=== PATIENT | male | born 1965 | race Caucasian/White ===

== ENCOUNTER 2016-11-22 08:06 | Inpatient (IN) | payer OTHER ==
[2016-11-22] VITALS (13 sets, daily range): BP systolic 113–155; BP diastolic 57–94
[~2016-11-22] VITALS: Ht 195.6 cm; Wt 103.8 kg
--- NOTE | 2016-11-22 09:42 | ED ORDER SUMMARY ---
..... Patient: PRABHJOT CHARLES OrderSheet [facility] VisitID: [id number] [address] [place] [address] 51y, M Registration Date/Time: 11/22/2016 ORDER SHEET Weight: 99.7 kg (stated) Allergies: NKDA GENERAL ORDERS: Cork Insulation Installer (Continuous) (08:11/22/2016 Radha CUNNINGHAM) (Ack 8:27 LMuller) (8:29 JBoardley R.N.) Chest 1V Urgent (:11/22/2016 Radha CUNNINGHAM) (Ack 8:27 LMuller) (8:36 JBoardley R.N.) Cardiac Panel Stat (11/22/2016 Radha CUNNINGHAM) (Ack 8:27 LMuller) (8:29 JBoardley R.N.) TSH Urgent (:11/22/2016 Radha CUNNING[place]AM) (Ack 8:27 LMuller) (8:29 JBoardley R.N.) UA-Culture if indicated Urgent (:11/22/2016 Radha CUNNING[place]AM) (Ack 8:27 LMuller) (8:59 JBoardley R.N.) Urine Drug Screen Urgent (:11/22/2016 Radha CUNNING[place]AM) (Ack 8:27 LMuller) (8:59 JBoardley R.N.) EKG - ER Stat (:11/22/2016 Radha CUNNING[place]AM) (Ack 8:27 LMuller) (8:28 LMuller) Pulse oximeter (:11/22/2016 Radha CUNNING[place]AM) (Ack 8:27 LMuller) (8:29 JBoardley R.N.) Oxygen (2 L/min) (NC) (:11/22/2016 Radha CUNNINGHAM) (Ack 8:27 LMuller) (8:29 JBoardley R.N.) BNP Urgent (09:11 11/22/2016 Radha CUNNING[place]AM) (9:14 LMuller) MEDICATION ORDERS: Aspirin PO 325 mg (NOW) (08:30 11/22/2016 Radha CUNNINGHAM) (8:37 JBoardley R.N.) Cardizem Drip IV : initial bolus 20 mg already given. , then 10 mg/hr for 4h (NOW); Routine (08:43 11/22/2016 Radha CUNNINGHAM) (8:45 JBoardley R.N.) IV FLUIDS: Cardizem IV 20 mg (NOW) (08:25 11/22/2016 Radha CUNNINGHAM) (Ack 8:29 JBoardley R.N.) (8:36 JBoardley R.N.) IV Saline Lock (08:26 11/22/2016 Radha CUNNINGHAM) (Ack 8:29 JBoardley R.N.) (8:37 JBoardley R.N.) Zofran IV 4 mg (NOW) (08:45 11/22/2016 Radha CUNNINGHAM) (8:46 JBoardley R.N.) ORDER SHEET NOTES: [Electronically signed by Juventino Odom R.N. (11:11/22/2016)] [Electronically signed by Tommy Alaniz MD (19:20 11/23/2016)] [Electronically locked/signed by Juventino Odom R.N. (11:11/22/2016)]
--- NOTE | 2016-11-22 09:42 | ED CLINICAL REPORT ---
Clinical Report - Physicians/Mid Levels [facility] [address] [place] [address] 11/22/2016 8:08 Patient: PRABHJOT CHARLES Time Seen: 08:19 Nov 22 2016. Arrived- By ambulance. Historian- patient and EMS personnel. CPT: Critical care < 74 min plus (#[id number]) and 30-74 min plus (#[id number]). EKG interpretation (#[id number]). HISTORY OF PRESENT ILLNESS Chief Complaint: CHEST DISCOMFORT. At its maximum, severity described as mild. When seen in the E.D., severity described as mild. Modifying factors. Not worsened by anything. Not relieved by anything. It is described as dull and it is described as located in the central chest area. This started today and is still present. Onset during light activity. No nausea, vomiting, difficulty breathing or diaphoresis. Similar symptoms previously: Once, as bad. Seen in the ED. Diagnosis: (Rapid a-fib). Recent medical care: Not recently seen/assessed. REVIEW OF SYSTEMS No fever, chills, cough, calf pain or fainting episodes. No sore throat, abdominal pain, black stools, difficulty with urination or skin rash. No enlarged lymph nodes or joint pain. All systems otherwise negative, except as recorded above. PAST HISTORY Heart rhythm problems with history of atrial fibrillation. Ablation for frequent PVC's 1 year ago : [place]. Had many previous episodes of PVC's but never had to have electrical cardioversion. 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 No history of coronary artery disease, lung disease, renal disease, congestive heart failure or pulmonary embolism. No history of diabetes mellitus. Hypertension. Hyperlipidemia. Psoriasis. (pre-diabetic). Medications: ASA Oral. Statins Support Oral 10mg, daily. Lopressor Oral (Tablet 50 mg), daily. SOCIAL HISTORY Former smoker. Regular alcohol use. No drug use. ADDITIONAL NOTES The nursing notes have been reviewed. PHYSICAL EXAM Vital Signs: 11/22/2016 08:18 BP: 149/103. HR: 156. RR: 20. O2 saturation: 100%. Temp: 98.1 F. Pain level now: 0/10. Appearance: Alert. Eyes: Eyes normal inspection. ENT: Pharynx normal. Neck: Normal inspection. CVS: Tachycardia. Abnormal rhythm, which is irregularly irregular. Heart sounds normal. Pulses normal. No cardiac murmur. Respiratory: No respiratory distress. Breath sounds normal. Chest nontender. Abdomen: Soft and nontender. Back: Normal external inspection. Skin: Skin warm. Normal skin color. No rash. Extremities: Extremities exhibit normal ROM. No lower extremity edema. Neuro: Oriented X 3. No motor deficit. No sensory deficit. LABS, X-RAYS, AND EKG EKG: Rate: 164. Atrial fibrillation. Normal QRS complex. Normal axis. Non-specific ST segment / T wave abnormalities. Prior EKG unavailable. The study has been interpreted contemporaneously. The study has been independently viewed by me. The EKG appears to be a good tracing. Chest X-ray: No acute disease. Views: AP (portable). Laboratory Tests: UA-Culture if indicated: (HAILY: 11/22/2016 08:55) ( Deep Casing Toolscvd 11/22/2016 09:22) Final results Test Result Flag Units (Reference) URINE COLOR YELLOW URINE APPEARANCE CLEAR URINE GLUCOSE NEGATIVE (NEGATIVE) URINE BILIRUBIN NEGATIVE (NEGATIVE) URINE KETONE 1+ (NEGATIVE) URINE SPECIFIC GRAVITY <= 1.005 L (1.010-1.030) URINE PH 7.0 (5.0-8.0) URINE PROTEIN NEGATIVE (NEGATIVE) URINE UROBILINOGEN 0.2 EU/dL (0.2-1.0) URINE NITRITE NEGATIVE (NEGATIVE) URINE BLOOD 1+ (NEGATIVE) URINE LEUK ESTERASE NEGATIVE (NEGATIVE) URINE RBC NONE SEEN rbc/hpf (0-1) URINE WBC NONE SEEN wbc/hpf (0-1) URINE EPITHELIAL CELLS NONE SEEN EPI/hpf (0-5) URINE BACTERIA NONE SEEN (NONE SEEN) URINE COMMENT CULT NOT INDICATED URINE CULTURES ARE SET-UP BASED ON THE FOLLOWING CRITERIA:POSITIVE NITRITEPOSITIVE LEUKOCYTE ESTERASEGREATER THAN 10 WHITE BLOOD CELLSMODERATE (2+) OR GREATER BACTERIA CBC w Diff: (HAILY: 11/22/2016 08:00) ( MsgRcvd 11/22/2016 08:50) Final results Test Result Flag Units (Reference) WHITE BLOOD COUNT 6.4 K/uL (4.5-11.5) RED BLOOD COUNT 5.33 M/uL (4.50-5.90) HEMOGLOBIN 17.0 gm/dL (13.5-17.5) HEMATOCRIT 49.7 % (41.0-53.0) MEAN CELL VOLUME 93 fL (80-100) MEAN CORPUSCULAR HGB 32 pg (26-34) MEAN CORPUSCULAR HGB CONC 34 g/dL (31-37) RED CELL DISTRIBUTION WIDTH 12.6 % (11.6-14.8) PLATELET COUNT 238 K/uL (150-400) NEUTROPHIL % 53.3 % (50-75) LYMPH % 33.9 % (25-40) MONO % 8.1 % (3-14) EOSINOPHIL % 3.5 % (0-4) BASOPHIL % 1.2 % (0-2) CHEM 13 PANEL: (HAILY: 11/22/2016 08:00) ( MsgRcvd 11/22/2016 09:14) IP Test Result Flag Units (Reference) GLUCOSE 126 H mg/dL (70-110) BUN 8 mg/dL (7-18) CREATININE 1.0 mg/dL (0.6-1.3) Estimated GFR >60 mL/min Estimated GFR- >60 mL/min Note: Persistent reduction over 3 months in eGFR<60 mL/min/1.73 m2 defines CKD. Patients with eGFR values>=60 mL/min/1.73 m2 may also have CKD if evidence ofpersistent proteinuria. Additional information may be foundat www.kidney.org. SODIUM 138 mmol/L (136-145) POTASSIUM 3.9 mmol/L (3.5-5.1) CHLORIDE 100 mmol/L (98-107) CARBON DIOXIDE 20 L mmol/L (21-32) CALCIUM 9.1 mg/dL (8.5-10.1) TOTAL PROTEIN 8.2 g/dL (6.4-8.2) ALBUMIN 4.1 g/dL (3.3-5.0) BILIRUBIN, TOTAL 0.8 mg/dL (0.0-1.0) ALKALINE PHOSPHATASE 92 U/L (46-116) AST (SGOT) 70 H U/L (15-37) ALT (SGPT) 89 H U/L (12-78) MAGNESIUM 1.7 L mg/dL (1.8-2.4) CPK 215 U/L (24-260) TROPONIN I 0.10 ng/mL (0.00-1.5) TROPONIN REFERENCE RANGE:<0.1 NEGATIVE0.1-1.5 INDETERMINANT>1.5 POSITIVE . PROGRESS AND PROCEDURES Course of Care: Cardiazem 20 mg IV Cardiazem 10 mg /hr. ASA 325 mg po CHAD2 =1 or 3% risk [id number] score=1 or risk 0.6%. Critical care performed (80 minutes). Time is exclusive of separately billable procedures. Time includes: direct patient care, patient reassessment, coordination of patient care, interpretation of data (laboratory data, pulse oximetry, chest xrays and prior electrocardiograms), review of patient's medical records, medical consultation and documentation of patient care- see progress notes. Procedures included in critical care time: peripheral IV placement and phlebotomy. Procedures excluded from critical care time: electrocardiography. Discussed case with on-call health care provider, (Shalonda). Reviewed test results. Agreed upon treatment plan and decision to admit. Health care provider will see patient in ED. Patient/family counseled. Old medical records ordered. Disposition orders written. Disposition: Admitted to the Critical Care Unit. CLINICAL IMPRESSION New onset atrial fibrillation. The patient does not have one or more high risk factors and/or two or more moderate risk factors for thromboembolism. The patient is not prescribed warfarin or another FDA approved anticoagulant because new onset a-fib. Indeterminant troponin. (Electronically signed by Tommy Alaniz MD 11/23/2016 19:20)
--- NOTE | 2016-11-22 09:42 | ED ORDER SUMMARY ---
..... Patient: PRABHJOT CHARLES OrderSheet [facility] VisitID: [id number] [address] [place] [address] 51y, M Registration Date/Time: 11/22/2016 ORDER SHEET Weight: 99.7 kg (stated) Allergies: NKDA GENERAL ORDERS: Grease Remover (Continuous) (08:11/22/2016 Radha CUNNINGHAM) (Ack 8:27 LMuller) (8:29 JBoardley R.N.) Chest 1V Urgent (:11/22/2016 Radha CUNNINGHAM) (Ack 8:27 LMuller) (8:36 JBoardley R.N.) Cardiac Panel Stat (11/22/2016 Radha CUNNINGHAM) (Ack 8:27 LMuller) (8:29 JBoardley R.N.) TSH Urgent (:11/22/2016 Radha CUNNINGHAM) (Ack 8:27 LMuller) (8:29 JBoardley R.N.) UA-Culture if indicated Urgent (:11/22/2016 Radha CUNNINGHAM) (Ack 8:27 LMuller) (8:59 JBoardley R.N.) Urine Drug Screen Urgent (:11/22/2016 Radha CUNNINGHAM) (Ack 8:27 LMuller) (8:59 JBoardley R.N.) EKG - ER Stat (:11/22/2016 Radha CUNNINGHAM) (Ack 8:27 LMuller) (8:28 LMuller) Pulse oximeter (:11/22/2016 Radha CUNNINGHAM) (Ack 8:27 LMuller) (8:29 JBoardley R.N.) Oxygen (2 L/min) (NC) (:11/22/2016 Radha CUNNINGHAM) (Ack 8:27 LMuller) (8:29 JBoardley R.N.) BNP Urgent (09:11 11/22/2016 Radha CUNNINGHAM) (9:14 LMuller) MEDICATION ORDERS: Aspirin PO 325 mg (NOW) (08:30 11/22/2016 Radha CUNNINGHAM) (8:37 JBoardley R.N.) Cardizem Drip IV : initial bolus 20 mg already given. , then 10 mg/hr for 4h (NOW); Routine (08:43 11/22/2016 Radha CUNNINGHAM) (8:45 JBoardley R.N.) IV FLUIDS: Cardizem IV 20 mg (NOW) (08:25 11/22/2016 Radha CUNNINGHAM) (Ack 8:29 JBoardley R.N.) (8:36 JBoardley R.N.) IV Saline Lock (08:26 11/22/2016 Radha CUNNINGHAM) (Ack 8:29 JBoardley R.N.) (8:37 JBoardley R.N.) Zofran IV 4 mg (NOW) (08:45 11/22/2016 Radha CUNNINGHAM) (8:46 JBoardley R.N.) ORDER SHEET NOTES: [Electronically signed by Juventino Odom R.N. (11:11/22/2016)] [Electronically signed by Tommy Alaniz MD (19:20 11/23/2016)] [Electronically locked/signed by Juventino Odom R.N. (11:11/22/2016)]
--- NOTE | 2016-11-22 09:42 | ED CLINICAL REPORT ---
Clinical Report - Physicians/Mid Levels [facility] [address] [place] [address] 11/22/2016 8:08 Patient: PRABHJOT CHARLES Time Seen: 08:19 Nov 22 2016. Arrived- By ambulance. Historian- patient and EMS personnel. CPT: Critical care < 74 min plus (#[id number]) and 30-74 min plus (#[id number]). EKG interpretation (#[id number]). HISTORY OF PRESENT ILLNESS Chief Complaint: CHEST DISCOMFORT. At its maximum, severity described as mild. When seen in the E.D., severity described as mild. Modifying factors. Not worsened by anything. Not relieved by anything. It is described as dull and it is described as located in the central chest area. This started today and is still present. Onset during light activity. No nausea, vomiting, difficulty breathing or diaphoresis. Similar symptoms previously: Once, as bad. Seen in the ED. Diagnosis: (Rapid a-fib). Recent medical care: Not recently seen/assessed. REVIEW OF SYSTEMS No fever, chills, cough, calf pain or fainting episodes. No sore throat, abdominal pain, black stools, difficulty with urination or skin rash. No enlarged lymph nodes or joint pain. All systems otherwise negative, except as recorded above. PAST HISTORY Heart rhythm problems with history of atrial fibrillation. Ablation for frequent PVC's 1 year ago : [place]. Had many previous episodes of PVC's but never had to have electrical cardioversion. 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 No history of coronary artery disease, lung disease, renal disease, congestive heart failure or pulmonary embolism. No history of diabetes mellitus. Hypertension. Hyperlipidemia. Psoriasis. (pre-diabetic). Medications: ASA Oral. Statins Support Oral 10mg, daily. Lopressor Oral (Tablet 50 mg), daily. SOCIAL HISTORY Former smoker. Regular alcohol use. No drug use. ADDITIONAL NOTES The nursing notes have been reviewed. PHYSICAL EXAM Vital Signs: 11/22/2016 08:18 BP: 149/103. HR: 156. RR: 20. O2 saturation: 100%. Temp: 98.1 F. Pain level now: 0/10. Appearance: Alert. Eyes: Eyes normal inspection. ENT: Pharynx normal. Neck: Normal inspection. CVS: Tachycardia. Abnormal rhythm, which is irregularly irregular. Heart sounds normal. Pulses normal. No cardiac murmur. Respiratory: No respiratory distress. Breath sounds normal. Chest nontender. Abdomen: Soft and nontender. Back: Normal external inspection. Skin: Skin warm. Normal skin color. No rash. Extremities: Extremities exhibit normal ROM. No lower extremity edema. Neuro: Oriented X 3. No motor deficit. No sensory deficit. LABS, X-RAYS, AND EKG EKG: Rate: 164. Atrial fibrillation. Normal QRS complex. Normal axis. Non-specific ST segment / T wave abnormalities. Prior EKG unavailable. The study has been interpreted contemporaneously. The study has been independently viewed by me. The EKG appears to be a good tracing. Chest X-ray: No acute disease. Views: AP (portable). Laboratory Tests: UA-Culture if indicated: (HAILY: 11/22/2016 08:55) ( [id number] 11/22/2016 09:22) Final results Test Result Flag Units (Reference) URINE COLOR YELLOW URINE APPEARANCE CLEAR URINE GLUCOSE NEGATIVE (NEGATIVE) URINE BILIRUBIN NEGATIVE (NEGATIVE) URINE KETONE 1+ (NEGATIVE) URINE SPECIFIC GRAVITY <= 1.005 L (1.010-1.030) URINE PH 7.0 (5.0-8.0) URINE PROTEIN NEGATIVE (NEGATIVE) URINE UROBILINOGEN 0.2 EU/dL (0.2-1.0) URINE NITRITE NEGATIVE (NEGATIVE) URINE BLOOD 1+ (NEGATIVE) URINE LEUK ESTERASE NEGATIVE (NEGATIVE) URINE RBC NONE SEEN rbc/hpf (0-1) URINE WBC NONE SEEN wbc/hpf (0-1) URINE EPITHELIAL CELLS NONE SEEN EPI/hpf (0-5) URINE BACTERIA NONE SEEN (NONE SEEN) URINE COMMENT CULT NOT INDICATED URINE CULTURES ARE SET-UP BASED ON THE FOLLOWING CRITERIA:POSITIVE NITRITEPOSITIVE LEUKOCYTE ESTERASEGREATER THAN 10 WHITE BLOOD CELLSMODERATE (2+) OR GREATER BACTERIA CBC w Diff: (HAILY: 11/22/2016 08:00) ( MsgRcvd 11/22/2016 08:50) Final results Test Result Flag Units (Reference) WHITE BLOOD COUNT 6.4 K/uL (4.5-11.5) RED BLOOD COUNT 5.33 M/uL (4.50-5.90) HEMOGLOBIN 17.0 gm/dL (13.5-17.5) HEMATOCRIT 49.7 % (41.0-53.0) MEAN CELL VOLUME 93 fL (80-100) MEAN CORPUSCULAR HGB 32 pg (26-34) MEAN CORPUSCULAR HGB CONC 34 g/dL (31-37) RED CELL DISTRIBUTION WIDTH 12.6 % (11.6-14.8) PLATELET COUNT 238 K/uL (150-400) NEUTROPHIL % 53.3 % (50-75) LYMPH % 33.9 % (25-40) MONO % 8.1 % (3-14) EOSINOPHIL % 3.5 % (0-4) BASOPHIL % 1.2 % (0-2) CHEM 13 PANEL: (HAILY: 11/22/2016 08:00) ( MsgRcvd 11/22/2016 09:14) IP Test Result Flag Units (Reference) GLUCOSE 126 H mg/dL (70-110) BUN 8 mg/dL (7-18) CREATININE 1.0 mg/dL (0.6-1.3) Estimated GFR >60 mL/min Estimated GFR- >60 mL/min Note: Persistent reduction over 3 months in eGFR<60 mL/min/1.73 m2 defines CKD. Patients with eGFR values>=60 mL/min/1.73 m2 may also have CKD if evidence ofpersistent proteinuria. Additional information may be foundat www.kidney.org. SODIUM 138 mmol/L (136-145) POTASSIUM 3.9 mmol/L (3.5-5.1) CHLORIDE 100 mmol/L (98-107) CARBON DIOXIDE 20 L mmol/L (21-32) CALCIUM 9.1 mg/dL (8.5-10.1) TOTAL PROTEIN 8.2 g/dL (6.4-8.2) ALBUMIN 4.1 g/dL (3.3-5.0) BILIRUBIN, TOTAL 0.8 mg/dL (0.0-1.0) ALKALINE PHOSPHATASE 92 U/L (46-116) AST (SGOT) 70 H U/L (15-37) ALT (SGPT) 89 H U/L (12-78) MAGNESIUM 1.7 L mg/dL (1.8-2.4) CPK 215 U/L (24-260) TROPONIN I 0.10 ng/mL (0.00-1.5) TROPONIN REFERENCE RANGE:<0.1 NEGATIVE0.1-1.5 INDETERMINANT>1.5 POSITIVE . PROGRESS AND PROCEDURES Course of Care: Cardiazem 20 mg IV Cardiazem 10 mg /hr. ASA 325 mg po CHAD2 =1 or 3% risk [id number] score=1 or risk 0.6%. Critical care performed (80 minutes). Time is exclusive of separately billable procedures. Time includes: direct patient care, patient reassessment, coordination of patient care, interpretation of data (laboratory data, pulse oximetry, chest xrays and prior electrocardiograms), review of patient's medical records, medical consultation and documentation of patient care- see progress notes. Procedures included in critical care time: peripheral IV placement and phlebotomy. Procedures excluded from critical care time: electrocardiography. Discussed case with on-call health care provider, (Shalonda). Reviewed test results. Agreed upon treatment plan and decision to admit. Health care provider will see patient in ED. Patient/family counseled. Old medical records ordered. Disposition orders written. Disposition: Admitted to the Critical Care Unit. CLINICAL IMPRESSION New onset atrial fibrillation. The patient does not have one or more high risk factors and/or two or more moderate risk factors for thromboembolism. The patient is not prescribed warfarin or another FDA approved anticoagulant because new onset a-fib. Indeterminant troponin. (Electronically signed by Tommy Alaniz MD 11/23/2016 19:20)
--- NOTE | 2016-11-22 09:42 | ED NURSING NOTES ---
Clinical Report - Nurses [facility] [address] [place] [address] 11/22/2016 8:08 [id number] Triage time 08:19. Acuity: LEVEL 2. Chief Complaint: CHEST PAIN. 08:19 11/22/16. 08:19 11/22/16. Alert. SEPSIS SCREEN: Sepsis Screen. Negative (no infection suspected/documented). --08:22 Juventino Odom R.N. 08:18 11/22/16. BP: 149/103. HR: 156. RR: 20. O2 saturation: 100% on nasal cannula at 2 liters/minute. Temp: 98.1 F (oral). Pain level now: 0/10. --08:22 Juventino Odom R.N. Weight: 99.7 kg stated. Height/Length: 77 inches Per Patient. BMI: 26.1. --08:19 Juventino Odom R.N. Medications Lopressor Oral (Tablet 50 mg), daily. --08:20 Juventino Odom R.N. Statins Support Oral 10mg, daily. --08:21 Juventino Odom R.N. ASA Oral. --08:21 Juventino Odom R.N. Medication/allergy information source: the patient. --08:22 Juventino Odom R.N. Allergies NKDA. --10:18 Juventino Odom R.N. History Arrived by private vehicle. Historian: patient. Accompanied by family. Primary physician (Kerry Bishop-Cardiolgist). 08:19 11/22/16. ( 30 min ago). He has had difficulty breathing. Reports experiencing sweating episodes. Treatment DESIGN ENGINEERING TECHNICIAN: None. PAST MEDICAL HX: Immunizations: up-to-date. SOCIAL HX: Never smoker. No alcohol use or drug use. No infectious disease exposure. ABUSE ASSESSMENT: No report of abuse. FALL RISK ASSESSMENT: Fall risk assessment completed. No fall risk identified. NUTRITIONAL RISK ASSESSMENT: The nutritional risk assessment revealed no deficiencies. FUNCTIONAL ASSESSMENT: Functional assessment: no impairments noted. LEARNING NEEDS ASSESSMENT: The learning needs assessment revealed no barriers. SKIN INTEGRITY ASSESSMENT: Skin integrity risk assessment completed. No skin integrity risk identified. --08:22 Juventino Odom R.N. PROBLEMS: Skin Problems. Hypertension. Hyperlipidemia. Arrhythmia. --10:17 Juventino Odom R.N. ADDITIONAL SURGERIES: Cardiac Procedures. --08:22 Juventino Odom R.N. Assessment 08:11/22/16. --08:22 Juventino Odom R.N. Interventions 08:11/22/16. 08:11/22/16. ID and allergy band on patient. --08:22 Juventino Odom R.N. PHYSICAL ASSESSMENT 08:11/22/16. Ambulatory to room. GENERAL / NEURO / PSYCH: Alert. Oriented X 4. Appears anxious. RESPIRATORY: Mild respiratory distress. CVS: Capillary refill less than 2 seconds. SKIN: Skin is warm and dry. --08:22 Juventino Odom R.N. NURSING PROGRESS NOTES 08:11/22/2016 Site #1 started via IV in the right antecubital space with an 20g angiocath, with aseptic technique and good blood return; one attempt. Blood drawn: rainbow set. Labeled in the presence of the patient. Saline lock flushed with 10 mL saline. --08:36 Juventino Odom R.N. 08:23 11/22/16. The plan of care for this patient has been created. bracelet form coverer, pulse oximeter and NIBP monitor placed on patient; monitor alarms on. Head of bed elevated. Two patient identifiers checked. Call light placed in reach. Side rails up x 2. Bed placed in lowest position. Brakes of bed on. Brakes of chair on. Patient ready for evaluation- chart flagged and ED physician notified. --08:23 Juventino Odom R.N. 08:23 11/22/16. Reassurance given to the patient. --08:24 Juventino Odom R.N. 08:24 11/22/16. The plan of care for this patient has been created. Patient gowned. Head of bed elevated. --08:24 Juventino Odom R.N. 08:24 11/22/16. EKG time: (0821 AM). EKG was ordered, performed by a nurse and shown to the ED physician. --08:24 Juventino Odom R.N. 08:24 11/22/16. Cardiac rhythm: sinus tachycardia; (170). --08:24 Juventino Odom R.N. 08:33. ( REQUESTED CARDIAC RECORDS [facility]). --08:33 Yuliana Obrien 08:26 11/22/2016 Cardizem IVP 20 mg given over 4 minute(s) via site #1. Allergies verified and confirmed 5 rights. IV patency established. IV site checked: no pain, redness, or swelling. IV flushed thoroughly pre- and post-medication administration. IVP given by RN. --08:36 Juventino Odom R.N. 08:27 11/22/2016 Site #2 started via IV in the left antecubital space with an 20g angiocath; one attempt. Saline lock flushed with 10 mL saline. --08:37 Juventino Odom R.N. 08:27 11/22/2016 Aspirin PO 325 mg given. Allergies verified and confirmed 5 rights. --08:37 Juventino Odom R.N. 08:38 11/22/16. BP: 138/84. HR: 118. RR: 20. O2 saturation: 100% on nasal cannula at 2 liters/minute. --08:38 Juventino Odom R.N. 08:38 11/22/16. Cardiac rhythm: atrial fibrillation. --08:38 Juventino Odom R.N. 08:39 11/22/16. Oxygen administered by nasal cannula at 2 liters. --08:39 Juventino Odom R.N. 08:39 11/22/16. ( at bedside). --08:39 Juventino Odom R.N. 08:45 11/22/2016 Started 10 mg of Cardizem Drip IV in bag #1 125 mL; at 10 mg/hr over 4 hour(s) via site #2; Allergies verified and confirmed 5 rights. IV patency established. IV site checked: no pain, redness, or swelling. IV flushed thoroughly pre- and post-medication administration. Completed per protocol. --08:45 Juventino Odom R.N. 08:46 11/22/2016 Zofran (Ondansetron HCl) IVP 4 mg given over 2 minute(s) via site #1. Allergies verified and confirmed 5 rights. IV patency established. IV site checked: no pain, redness, or swelling. IV flushed thoroughly pre- and post-medication administration. IVP given by RN. --08:46 Juventino Odmo R.N. 08:54 11/22/16. BP: 138/84. HR: 100. RR: 14. O2 saturation: 100% on nasal cannula at 2 liters/minute. --08:54 Juventino Odom R.N. 08:47 11/22/2016 Site #3 started via IV in the left wrist with an 20g angiocath, with aseptic technique and good blood return; one attempt. --08:57 Juventino Odom R.N. 08:54 11/22/16. Cardiac rhythm: atrial fibrillation. --08:54 Juventino Odom R.N. 08:58 11/22/16. Patient ID band checked for patient name and birthdate. Clean catch urine collected with return of yellow-colored urine; sample sent to lab for urinalysis, culture and drug screen. Specimen labeled in the presence of the patient. --08:58 Juventino Odom R.N. 08:59 11/22/16. Cardiac rhythm: atrial fibrillation; (99). --08:59 Juventino Odom R.N. 09:00 11/22/16. Reassessment after medication administered (zofran and dilt gtt). Overall patient status is improved- he states feels better. --09:00 Juventino Odom R.N. 09:16 11/22/16. Cardiac rhythm: atrial fibrillation; (110). --09:16 Juventino Odom R.N. 09:15 11/22/16. BP: 147/83. HR: 100. RR: 18. O2 saturation: 100% on nasal cannula at 2 liters/minute. --09:16 Juventino Odom R.N. 09:16 11/22/16. Reassessment after medication administered. He has had no adverse reaction. Overall patient status- he states feels better. --09:16 Juventino Odom R.N. 09:38 11/22/16. BP: 141/90. HR: 97. RR: 18. O2 saturation: 100% on nasal cannula at 2 liters/minute. --09:38 Juventino Odom R.N. 09:38 11/22/16. Cardiac rhythm: atrial fibrillation. --09:38 Juventino Odom R.N. 10:09 11/22/16. BP: 134/88. HR: 85. RR: 14. O2 saturation: 100% on nasal cannula at 2 liters/minute. --10:10 Juventino dOom R.N. 10:10 11/22/16. Cardiac rhythm: atrial fibrillation. --10:10 Juventino Odom R.N. 10:12 11/22/2016 Cardizem Drip IV Continued: at the rate of 20 mg/hr. 75 mL remaining bag #1. IV patency established. IV site checked: no pain, redness, or swelling. IV flushed thoroughly. --10:12 Juventino Odom R.N. Intake & Output 08:58 11/22/16. Urine: 200 mL. --08:58 Juventino Odom R.N. DISPOSITION / DISCHARGE 09:39 11/22/16. Patient's personal items include, pants, shirt, cell phone, shoes, socks, no money, no weapons, no meds,. --09:39 Juventino Odom R.N. 10:10 11/22/2016 Site #[address] upon admission; patent. --10:10 Juventino Odom R.N. 10:11 11/22/2016 Site #2 removed. Catheter intact (Site with sluggish flush, DC'd site). --10:11 Juventino Odom R.N. 10:12 11/22/2016 Site #3 [address] place upon admission; patent. --10:12 Juventino Odom R.N. 10:13 11/22/16. The goals identified in the patient's plan of care were met. ( Admitting RN to call back for report, unable to at this time). FALL RISK ASSESSMENT: Fall risk assessment completed. No fall risk identified. --10:13 Juventino Odom R.N. 10:09 11/22/16. BP: 134/88. HR: 85. RR: 14. O2 saturation: 100% on nasal cannula at 2 liters/minute. --10:13 Juventino Odom R.N. 10:39 11/22/16. Transported via stretcher by nurse with monitor, defibrillator, IV, O2 and emergency medications. --10:39 Juventino Odom R.N. 10:39 11/22/16. ( To admit room 303). --10:39 Juventino Odom R.N. Departure time: 10:39 Nov 22 2016. --10:39 Juventino Odom R.N. Locked/Released at 11/22/2016 11:09 by Juventino Odom R.N.
--- NOTE | 2016-11-22 09:42 | ED NURSING NOTES ---
Clinical Report - Nurses [address] [place] [address] 11/22/2016 8:08 [id number] Triage time 08:19. Acuity: LEVEL 2. Chief Complaint: CHEST PAIN. 08:19 11/22/16. 08:19 11/22/16. Alert. SEPSIS SCREEN: Sepsis Screen. Negative (no infection suspected/documented). --08:22 Juventino Odom R.N. 08:18 11/22/16. BP: 149/103. HR: 156. RR: 20. O2 saturation: 100% on nasal cannula at 2 liters/minute. Temp: 98.1 F (oral). Pain level now: 0/10. --08:22 Juventino Odom R.N. Weight: 99.7 kg stated. Height/Length: 77 inches Per Patient. BMI: 26.1. --08:19 Juventino Odom R.N. Medications Lopressor Oral (Tablet 50 mg), daily. --08:20 Juventino Odom R.N. Statins Support Oral 10mg, daily. --08:21 Juventino Odom R.N. ASA Oral. --08:21 Juventino Odom R.N. Medication/allergy information source: the patient. --08:22 Juventino Odom R.N. Allergies NKDA. --10:18 Juventino Odom R.N. History Arrived by private vehicle. Historian: patient. Accompanied by family. Primary physician (Kerry Bishop-Cardiolgist). 08:19 11/22/16. ( 30 min ago). He has had difficulty breathing. Reports experiencing sweating episodes. Treatment SPIRITUAL COUNSELOR: None. PAST MEDICAL HX: Immunizations: up-to-date. SOCIAL HX: Never smoker. No alcohol use or drug use. No infectious disease exposure. ABUSE ASSESSMENT: No report of abuse. FALL RISK ASSESSMENT: Fall risk assessment completed. No fall risk identified. NUTRITIONAL RISK ASSESSMENT: The nutritional risk assessment revealed no deficiencies. FUNCTIONAL ASSESSMENT: Functional assessment: no impairments noted. LEARNING NEEDS ASSESSMENT: The learning needs assessment revealed no barriers. SKIN INTEGRITY ASSESSMENT: Skin integrity risk assessment completed. No skin integrity risk identified. --08:22 Juventino Odom R.N. PROBLEMS: Skin Problems. Hypertension. Hyperlipidemia. Arrhythmia. --10:17 Juventino Odom R.N. ADDITIONAL SURGERIES: Cardiac Procedures. --08:22 Juventino Odom R.N. Assessment 08:11/22/16. --08:22 Juventino Odom R.N. Interventions 08:11/22/16. 08:11/22/16. ID and allergy band on patient. --08:22 Juventino Odom R.N. PHYSICAL ASSESSMENT 08:11/22/16. Ambulatory to room. GENERAL / NEURO / PSYCH: Alert. Oriented X 4. Appears anxious. RESPIRATORY: Mild respiratory distress. CVS: Capillary refill less than 2 seconds. SKIN: Skin is warm and dry. --08:22 Juventino Odom R.N. NURSING PROGRESS NOTES 08:11/22/2016 Site #1 started via IV in the right antecubital space with an 20g angiocath, with aseptic technique and good blood return; one attempt. Blood drawn: rainbow set. Labeled in the presence of the patient. Saline lock flushed with 10 mL saline. --08:36 Juventino Odom R.N. 08:23 11/22/16. The plan of care for this patient has been created. mop maker, pulse oximeter and NIBP monitor placed on patient; monitor alarms on. Head of bed elevated. Two patient identifiers checked. Call light placed in reach. Side rails up x 2. Bed placed in lowest position. Brakes of bed on. Brakes of chair on. Patient ready for evaluation- chart flagged and ED physician notified. --08:23 Juventino Odom R.N. 08:23 11/22/16. Reassurance given to the patient. --08:24 Juventino Odom R.N. 08:24 11/22/16. The plan of care for this patient has been created. Patient gowned. Head of bed elevated. --08:24 Juventino Odom R.N. 08:24 11/22/16. EKG time: (0821 AM). EKG was ordered, performed by a nurse and shown to the ED physician. --08:24 Juventino Odom R.N. 08:24 11/22/16. Cardiac rhythm: sinus tachycardia; (170). --08:24 Juventino Odom R.N. 08:33. ( REQUESTED CARDIAC RECORDS [facility]). --08:33 Yuliana Obrien 08:26 11/22/2016 Cardizem IVP 20 mg given over 4 minute(s) via site #1. Allergies verified and confirmed 5 rights. IV patency established. IV site checked: no pain, redness, or swelling. IV flushed thoroughly pre- and post-medication administration. IVP given by RN. --08:36 Juventino Odom R.N. 08:27 11/22/2016 Site #2 started via IV in the left antecubital space with an 20g angiocath; one attempt. Saline lock flushed with 10 mL saline. --08:37 Juventino Odom R.N. 08:27 11/22/2016 Aspirin PO 325 mg given. Allergies verified and confirmed 5 rights. --08:37 Juventino Odom R.N. 08:38 11/22/16. BP: 138/84. HR: 118. RR: 20. O2 saturation: 100% on nasal cannula at 2 liters/minute. --08:38 Juventino Odom R.N. 08:38 11/22/16. Cardiac rhythm: atrial fibrillation. --08:38 Juventino Odom R.N. 08:39 11/22/16. Oxygen administered by nasal cannula at 2 liters. --08:39 Juventino Odom R.N. 08:39 11/22/16. ( at bedside). --08:39 Juventino Odom R.N. 08:45 11/22/2016 Started 10 mg of Cardizem Drip IV in bag #1 125 mL; at 10 mg/hr over 4 hour(s) via site #2; Allergies verified and confirmed 5 rights. IV patency established. IV site checked: no pain, redness, or swelling. IV flushed thoroughly pre- and post-medication administration. Completed per protocol. --08:45 Juventino Odom R.N. 08:46 11/22/2016 Zofran (Ondansetron HCl) IVP 4 mg given over 2 minute(s) via site #1. Allergies verified and confirmed 5 rights. IV patency established. IV site checked: no pain, redness, or swelling. IV flushed thoroughly pre- and post-medication administration. IVP given by RN. --08:46 Juventino Odom R.N. 08:54 11/22/16. BP: 138/84. HR: 100. RR: 14. O2 saturation: 100% on nasal cannula at 2 liters/minute. --08:54 Juventino Odom R.N. 08:47 11/22/2016 Site #3 started via IV in the left wrist with an 20g angiocath, with aseptic technique and good blood return; one attempt. --08:57 Juventino Odom R.N. 08:54 11/22/16. Cardiac rhythm: atrial fibrillation. --08:54 Juventino Odom R.N. 08:58 11/22/16. Patient ID band checked for patient name and birthdate. Clean catch urine collected with return of yellow-colored urine; sample sent to lab for urinalysis, culture and drug screen. Specimen labeled in the presence of the patient. --08:58 Juventino Odom R.N. 08:59 11/22/16. Cardiac rhythm: atrial fibrillation; (99). --08:59 Juventino Odom R.N. 09:00 11/22/16. Reassessment after medication administered (zofran and dilt gtt). Overall patient status is improved- he states feels better. --09:00 Juventino Odom R.N. 09:16 11/22/16. Cardiac rhythm: atrial fibrillation; (110). --09:16 Juventino Odom R.N. 09:15 11/22/16. BP: 147/83. HR: 100. RR: 18. O2 saturation: 100% on nasal cannula at 2 liters/minute. --09:16 Juventino Odom R.N. 09:16 11/22/16. Reassessment after medication administered. He has had no adverse reaction. Overall patient status- he states feels better. --09:16 Juventino Odom R.N. 09:38 11/22/16. BP: 141/90. HR: 97. RR: 18. O2 saturation: 100% on nasal cannula at 2 liters/minute. --09:38 Juventino Odom R.N. 09:38 11/22/16. Cardiac rhythm: atrial fibrillation. --09:38 Juventino Odom R.N. 10:09 11/22/16. BP: 134/88. HR: 85. RR: 14. O2 saturation: 100% on nasal cannula at 2 liters/minute. --10:10 Juventino Odom R.N. 10:10 11/22/16. Cardiac rhythm: atrial fibrillation. --10:10 Juventino Odom R.N. 10:12 11/22/2016 Cardizem Drip IV Continued: at the rate of 20 mg/hr. 75 mL remaining bag #1. IV patency established. IV site checked: no pain, redness, or swelling. IV flushed thoroughly. --10:12 Juventino Odom R.N. Intake & Output 08:58 11/22/16. Urine: 200 mL. --08:58 Juventino Odom R.N. DISPOSITION / DISCHARGE 09:39 11/22/16. Patient's personal items include, pants, shirt, cell phone, shoes, socks, no money, no weapons, no meds,. --09:39 Juventino Odom R.N. 10:10 11/22/2016 Site #[address] upon admission; patent. --10:10 Juventino Odom R.N. 10:11 11/22/2016 Site #2 removed. Catheter intact (Site with sluggish flush, DC'd site). --10:11 Juventino Odom R.N. 10:12 11/22/2016 Site #[address] upon admission; patent. --10:12 Juventino Odom R.N. 10:13 11/22/16. The goals identified in the patient's plan of care were met. ( Admitting RN to call back for report, unable to at this time). FALL RISK ASSESSMENT: Fall risk assessment completed. No fall risk identified. --10:13 Juventino Odom R.N. 10:09 11/22/16. BP: 134/88. HR: 85. RR: 14. O2 saturation: 100% on nasal cannula at 2 liters/minute. --10:13 Juventino Odom R.N. 10:39 11/22/16. Transported via stretcher by nurse with monitor, defibrillator, IV, O2 and emergency medications. --10:39 Juventino Odom R.N. 10:39 11/22/16. ( To admit room 303). --10:39 Juventino Odom R.N. Departure time: 10:39 Nov 22 2016. --10:39 Juventino Odom R.N. Locked/Released at 11/22/2016 11:09 by Juventino Odom R.N.
--- NOTE | 2016-11-22 10:34 | DIAGNOSTIC IMAGING REPORT ---
PROCEDURE: XR CHEST 1 VIEW INDICATION: CHEST PAIN TECHNIQUE: Portable AP view 08:38 a.m. COMPARISON: None. FINDINGS: Lungs are clear. Heart and mediastinum are normal. Thorax is normal. IMPRESSION: 1. Negative chest.
[2016-11-22] MEDS ORDERED: LIPITOR10 MG PO (16:04)
[2016-11-22] MEDS ORDERED: METOPROLOL SUCC25 MG PO (16:04)
[2016-11-22] MEDS ORDERED: ASPIRIN EC81 MG PO (16:07)
--- NOTE | 2016-11-22 19:30 | HISTORY AND PHYSICAL ---
ADMITTED: 11/22/2016 CHIEF COMPLAINT: 1. Nausea and dizziness HISTORY OF PRESENT ILLNESS: This is a 51-year-old man who was driving [place] the airport and all of a sudden felt dizzy, nauseated and sick, so patient saw the H sign and pulled over to the sign and checked in the emergency department and was found to have atrial fibrillation with the rapid ventricular response. The patient had some sweats, mild shortness of breath, but no chest pain, no palpitations, and patient was started on a Cardizem drip in the emergency department. 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 Surgical history: Remarkable for ablation and hernia repair. Hospitalizations overnight: None. MEDICATIONS: 1. Statin, probably Lipitor 10 mg daily. 2. Lopressor 50 mg daily. 3. Aspirin once daily. ALLERGIES: 1. NOT LISTED IN THE EMERGENCY DEPARTMENT PAPERWORK. SOCIAL HISTORY: The patient is and has 2 kids. No smoking or drugs, but patient drinks 1 bottle of wine every day for 25 years. FAMILY HISTORY: Remarkable for diabetes and cancer of breast. REVIEW OF SYSTEMS: Has been gaining weight recently. No difficulty with vision or hearing. No runny nose or congestion. No cough or sore throat. Nausea, but no vomiting, no abdominal pain, no indigestion. Normal regular bowel movement. No dysuria, frequency or incontinence. No arthralgia or myalgia. No headaches. Dizziness as described above. No tingling, no numbness, no syncope. No localized weakness. PHYSICAL EXAMINATION: VITAL SIGNS: Blood pressure is 149/103, heart rate was 160 and now it is 120s, respiration is 20, oxygen saturation 100% on room air, and temperature is 98.1. GENERAL APPEARANCE: Well-developed, well-nourished, good body build, no acute distress at this time. HEENT: Ears: Normal tympanic membrane. Mouth: Normal hypopharynx, no exudation, no erythema. Nose: Normal with normal mucosa. NECK: Supple. No JVD. No carotid bruit. No palpable mass. SKIN: Warm and dry with good turgor. LUNGS: Clear to auscultation. No rhonchi, wheezing or crackles. HEART: Regular S1 and S2 with tachycardia, no murmur, no S3 was heard. ABDOMEN: Soft, nontender. Bowel sounds are positive. EXTREMITIES: No edema. Good peripheral pulses. No signs of DVT or cyanosis. MUSCULOSKELETAL: Grossly within normal limits. NEUROLOGIC: Alert and oriented x3. Cranial nerves are grossly intact. No motor deficit. Pupils are equal, round, and reactive to light. Extraocular movements are intact. No nystagmus. No cerebellar signs. Deep tendon reflexes are bilateral and symmetric. LAB/IMAGING: EKG: Atrial fibrillation at 150. UA: 1+ blood. White blood count 6.4, hemoglobin 17, hematocrit is 49.7, platelet count is 238, 000. Glucose 126, BUN is 8, creatinine is 1, sodium is 138, potassium of 3.9, chloride is 100, CO2 is 20, calcium is 9.1. Liver enzymes: Slightly high AST and ALT. Chest x-ray: Negative. IMPRESSION: 1. Atrial fibrillation with rapid ventricular response. 2. Hypertension. 3. History of frequent premature ventricular contractions with ablation. PLAN: The patient will be admitted to intensive care unit and continue on Cardizem drip and we will continue Lopressor, statin and also aspirin. Chads 2 score, patient scored 1, which is low risk for anticoagulation, so I will hold anticoagulation. For time being, I will check the TSH and also do echocardiogram and we will do a cardiac enzyme series. If cardiology available tomorrow I will obtain a cardiology consultation.
[2016-11-23] VITALS (11 sets, daily range): BP systolic 103–143; BP diastolic 65–89
--- NOTE | 2016-11-23 08:15 | Progress Note ---
Subjective General has converted to sinus rhythym, off Cardizem drip, no palpitation, no dyspnea, no dizziness no nausea now,no vomiting no cp, no fever or chills Physical Exam Vital Signs / I&Os Vital Signs Date Time Temp Pulse Resp B/P Pulse O2 O2 Flow FiO2 Ox Delivery Rate 11/23 0744 1.5 11/23 0700 59 14 117/68 100 Nasal 1.5 Cannula 11/23 0610 97.3 69 10 119/75 100 Nasal 1.5 Cannula 11/23 0520 57 13 107/74 98 Nasal 1.5 Cannula 11/23 0421 52 13 103/67 98 Nasal 1.5 Cannula 11/23 0314 51 13 110/65 99 Nasal 1.5 Cannula 11/23 0214 97.9 62 11 118/76 99 Nasal 1.5 Cannula 11/23 0113 52 12 115/69 98 Nasal 1.5 Cannula 11/23 0015 51 14 117/70 99 Nasal 1.5 Cannula 11/22 2317 58 14 113/57 98 Nasal 1.5 Cannula 11/22 2245 98.2 11/22 2206 54 13 134/74 98 Nasal 1.5 Cannula 11/22 2112 86 13 153/94 99 Nasal 1.5 Cannula 11/22 2016 91 16 147/76 99 Nasal 1.5 Cannula 11/22 2000 Nasal 1.5 Cannula 11/22 1925 1.5 11/22 1900 87 14 150/86 99 Nasal 2.0 Cannula 11/22 1800 97.9 93 16 146/91 98 Nasal 2.0 Cannula 11/22 1710 100 14 99 Nasal 2.0 Cannula 11/22 1600 72 16 141/77 99 Nasal 2.0 Cannula 11/22 1500 75 15 133/81 99 Nasal 2.0 Cannula 11/22 1402 97.9 103 90 125/85 16 Nasal 2.0 Cannula 11/22 1340 2.0 11/22 1318 80 16 155/84 99 Nasal 2.0 Cannula 11/22 1230 110 19 139/80 99 Nasal 2.0 Cannula 11/22 1133 82 17 145/79 98 Nasal 2.0 Cannula 11/22 1130 Nasal 2.0 Cannula 11/22 1053 98.4 82 17 135/74 99 Nasal 2.0 Cannula I&O 11/23 0000 11/22 1600 11/22 0800 Intake Total 2361 Output Total 2900 1175 Balance -539 -1175 General Appearance No acute distress Lungs Clear to auscultation Neck Supple Cardiovascular Regular rate and rhythm, Normal S1 and S2, No murmurs, gallops, rubs Abdomen Normal bowel sounds, Soft, No tenderness Extremities No edema Skin No Rashes Psych/Mental Status Mental status normal (little emotional) LAB Results Laboratory Tests 11/23 11/23 11/22 11/22 0432 0212 1830 1007 Chemistry Plasma Sodium (136 - 145 mmol/L) 140 Plasma Potassium (3.5 - 5.1 mmol/L) 4.5 Plasma Chloride (98 - 107 mmol/L) 104 CO2 (Enzymatic) (21 - 32 mmol/L) 25 BUN (7 - 18 mg/dL) 11 Creatinine (0.6 - 1.3 mg/dL) 1.1 Est GFR ( Amer) (mL/min) >60 Est GFR (Non-Af Amer) (mL/min) >60 Glucose (70 - 110 mg/dL) 104 Plasma Calcium (8.5 - 10.1 mg/dL) 8.7 Plasma Magnesium Cancelled Troponin (0.00 - 1.5 ng/mL) <0.05 <0.05 Cancelled TSH 3rd Generation Cancelled Hematology WBC (4.5 - 11.5 K/uL) 8.5 RBC (4.50 - 5.90 M/uL) 5.16 Hgb (13.5 - 17.5 gm/dL) 16.7 Hct (41.0 - 53.0 %) 48.6 MCV (80 - 100 fL) 94 MCH (26 - 34 pg) 32 RDW (11.6 - 14.8 %) 12.9 Neut % (Auto) (50 - 75 %) 67.7 Lymph % (Auto) (25 - 40 %) 19.8 [place] % (Auto) (3 - 14 %) 9.7 Eos % (Auto) (0 - 4 %) 2.5 Baso % (Auto) (0 - 2 %) 0.3 Plt Count, EDTA (150 - 400 K/uL) 231 PUBS MCHC (31 - 37 g/dL) 34 11/22 11/22 11/22 0855 0826 0820 Chemistry B-Natriuretic Peptide (5 - 100 pg/ml) 44.5 TSH 3rd Generation Cancelled Toxicology Urine Opiates Screen (NEGATIVE) NEGATIVE Urine Methadone Screen (NEGATIVE) NEGATIVE Ur Barbiturates Screen (NEGATIVE) NEGATIVE U Amphetamin/Meth Scrn (NEGATIVE) NEGATIVE MDMA (Ecstasy) Screen (NEGATIVE) NEGATIVE U Benzodiazepines Scrn (NEGATIVE) NEGATIVE Urine Cocaine Screen (NEGATIVE) NEGATIVE U Cannabinoids Screen (NEGATIVE) POSITIVE Urines Urine Color YELLOW Urine Appearance CLEAR Urine pH (5.0 - 8.0) 7.0 Ur Specific [place] (1.010 - 1.030) <= 1.005 Urine Protein (NEGATIVE) NEGATIVE Urine Ketones (NEGATIVE) 1+ Urine Blood (NEGATIVE) 1+ Urine Nitrite (NEGATIVE) NEGATIVE Urine Bilirubin (NEGATIVE) NEGATIVE Urine Urobilinogen (0.2 - 1.0 EU/dL) 0.2 Ur Leukocyte Esterase (NEGATIVE) NEGATIVE Urine RBC (0 - 1 rbc/hpf) NONE SEEN Urine WBC (0 - 1 wbc/hpf) NONE SEEN Ur Epithelial Cells (0 - 5 EPI/hpf) NONE SEEN Urine Bacteria (NONE SEEN) NONE SEEN Urine Glucose (NEGATIVE) NEGATIVE Urine Comment CULT NOT INDICATED Microbiology Date/Time Procedure - Status Source Growth 11/22 1235 MRSA Screen - RECD NASAL Assessment and Plan Problem List 1. Afib Plan converted to sinus rhythym now, off cardizem drip, will put on oral cardizem, cardiology consult 2. HTN (hypertension) Plan controlled on medications 3. Multifocal PVCs Plan has ablation done by his player development manager
[2016-11-23] MEDS ORDERED: LOPRESSOR25 MG PO (09:31)
--- NOTE | 2016-11-23 09:52 | CONSULTATION REPORT ---
ADMITTED: 11/22/2016 CHIEF COMPLAINT: Nausea and dizziness. 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 On the way, he felt weak and nauseous. He felt he was getting hypotensive. He saw the hospital sign and drove over to [facility]. In the emergency room, he was found to have rapid atrial fibrillation. The patient was started on IV diltiazem. He was admitted to CCU. The patient subsequently converted to sinus rhythm. The patient denied any chest discomfort, chest heaviness, or tightness. He has had similar episodes in the past. He says these were not diagnosed, this is the first time he has been diagnosed with atrial fibrillation. As a part of his workup, he was found to have frequent PVCs. His feels that the term ventricular tachycardia also seems familiar. I mentioned this because Dr. Arun Hernandez program assistant at [place] performed an ablation procedure on him. MEDICAL/SURGICAL HISTORY: Borderline hypertension and borderline diabetes. He has history of ablation. I wonder if it was for ventricular tachycardia. The patient seems to think it was for isolated PVCs. MEDICATIONS: 1. Lipitor 10. 2. Lopressor 25 3. Aspirin 81 daily. ALLERGIES: 1. NONE. 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 He denies any history of smoking or drug use. FAMILY HISTORY: Noncontributory. REVIEW OF SYSTEMS: Comprehensive review of systems was done and is as per HPI. More specifically, no gastrointestinal or genitourinary bleeding. The patient has never been on warfarin type drugs. No CVA, no TIA. PHYSICAL EXAMINATION: GENERAL: Comfortable middle-aged man who looks his age. VITAL SIGNS: Pulse 75, blood pressure 135/70. NECK: Supple, no JVD. No bruit. LUNGS: Coarse breath sounds at the left lower base. No vocal fremitus or egophony. HEART: Sounds S1, S2 regular. No gallops. ABDOMEN: Soft. EXTREMITIES: Negative for CCE. CENTRAL NERVOUS SYSTEM: Alert and oriented. MUSCULOSKELETAL: Grossly normal. LAB/IMAGING: EKG currently in sinus rhythm, previously was in atrial fibrillation at heart rates over 150. Reviewed. His AST and ALT are both elevated. Creatinine is normal and his troponin is normal as well. IMPRESSION: 1. Paroxysmal atrial fibrillation with spontaneous conversion to sinus rhythm. 2. Questionable history of ablation due to PVCs. 3. Borderline hypertension and diabetes. PLAN: This gentleman's CHADS score is anywhere from 0 to 2. He claims that his blood pressure has been borderline and he had a solitary blood sugar, which was elevated. No medications were ever prescribed. I have advised him to follow up with his wiring inspector and his primary care physician. For now, I think it is appropriate to continue with a full aspirin daily. The decision about anticoagulation can be made by his wiring inspector in [place]. I am trying to get in touch with him. I feel his trigger for atrial fibrillation was alcohol excess. The patient was at a green party the night before and was heavy drinking. His LFTs were also abnormal. It would be prudent for him to curtail his drinking. Given the fact that he has an established wiring inspector, I will not be seeing the patient in followup. I thank you for letting me be involved in his care.
--- NOTE | 2016-11-23 09:52 | CONSULTATION REPORT ---
ADMITTED: 11/22/2016 CHIEF COMPLAINT: Nausea and dizziness. 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 On the way, he felt weak and nauseous. He felt he was getting hypotensive. He saw the hospital sign and drove over to [facility]. In the emergency room, he was found to have rapid atrial fibrillation. The patient was started on IV diltiazem. He was admitted to CCU. The patient subsequently converted to sinus rhythm. The patient denied any chest discomfort, chest heaviness, or tightness. He has had similar episodes in the past. He says these were not diagnosed, this is the first time he has been diagnosed with atrial fibrillation. As a part of his workup, he was found to have frequent PVCs. His feels that the term ventricular tachycardia also seems familiar. I mentioned this because Dr. Arun Hernandez reel tender at [place] performed an ablation procedure on him. MEDICAL/SURGICAL HISTORY: Borderline hypertension and borderline diabetes. He has history of ablation. I wonder if it was for ventricular tachycardia. The patient seems to think it was for isolated PVCs. MEDICATIONS: 1. Lipitor 10. 2. Lopressor 25 3. Aspirin 81 daily. ALLERGIES: 1. NONE. 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 He denies any history of smoking or drug use. FAMILY HISTORY: Noncontributory. REVIEW OF SYSTEMS: Comprehensive review of systems was done and is as per HPI. More specifically, no gastrointestinal or genitourinary bleeding. The patient has never been on warfarin type drugs. No CVA, no TIA. PHYSICAL EXAMINATION: GENERAL: Comfortable middle-aged man who looks his age. VITAL SIGNS: Pulse 75, blood pressure 135/70. NECK: Supple, no JVD. No bruit. LUNGS: Coarse breath sounds at the left lower base. No vocal fremitus or egophony. HEART: Sounds S1, S2 regular. No gallops. ABDOMEN: Soft. EXTREMITIES: Negative for CCE. CENTRAL NERVOUS SYSTEM: Alert and oriented. MUSCULOSKELETAL: Grossly normal. LAB/IMAGING: EKG currently in sinus rhythm, previously was in atrial fibrillation at heart rates over 150. Reviewed. His AST and ALT are both elevated. Creatinine is normal and his troponin is normal as well. IMPRESSION: 1. Paroxysmal atrial fibrillation with spontaneous conversion to sinus rhythm. 2. Questionable history of ablation due to PVCs. 3. Borderline hypertension and diabetes. PLAN: This gentleman's CHADS score is anywhere from 0 to 2. He claims that his blood pressure has been borderline and he had a solitary blood sugar, which was elevated. No medications were ever prescribed. I have advised him to follow up with his substation engineer and his primary care physician. For now, I think it is appropriate to continue with a full aspirin daily. The decision about anticoagulation can be made by his substation engineer in [place]. I am trying to get in touch with him. I feel his trigger for atrial fibrillation was alcohol excess. The patient was at a alliance party the night before and was heavy drinking. His LFTs were also abnormal. It would be prudent for him to curtail his drinking. Given the fact that he has an established substation engineer, I will not be seeing the patient in followup. I thank you for letting me be involved in his care.
--- NOTE | 2016-11-23 10:01 | DISCHARGE SUMMARY ---
ADMIT DATE: 11/22/2016 DISCHARGE DATE: 11/23/2016 DISCHARGE DIAGNOSES: 1. Atrial fibrillation with rapid ventricular response, converted to sinus rhythm now. 2. Hypertension. 3. 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 HOSPITAL COURSE: The patient was put on diltiazem drip and admitted to the ICU and cardiac enzymes series was negative. The patient did really well on a Cardizem drip and his heart rate came down and controlled and finally converted to sinus rhythm. I had a cardiology consult, Dr. Vogel saw the patient and the patient will be on metoprolol 25 mg twice a day on top of his own medications. An echocardiogram, there is no need to be done now, patient can do it with his project product manager as an outpatient and no need for anticoagulation except for full dose of aspirin. The patient will be discharged home to follow up with his project product manager within 1 week. DISCHARGE INSTRUCTIONS/MEDICATIONS: Discharge medications will be: 1. Lipitor 10 mg daily. 2. Lopressor 25 mg twice a day. 3. Aspirin full dose once a day.
--- NOTE | 2016-11-23 10:01 | DISCHARGE SUMMARY ---
ADMIT DATE: 11/22/2016 DISCHARGE DATE: 11/23/2016 DISCHARGE DIAGNOSES: 1. Atrial fibrillation with rapid ventricular response, converted to sinus rhythm now. 2. Hypertension. 3. 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 HOSPITAL COURSE: The patient was put on diltiazem drip and admitted to the ICU and cardiac enzymes series was negative. The patient did really well on a Cardizem drip and his heart rate came down and controlled and finally converted to sinus rhythm. I had a cardiology consult, Dr. Vogel saw the patient and the patient will be on metoprolol 25 mg twice a day on top of his own medications. An echocardiogram, there is no need to be done now, patient can do it with his car bracer as an outpatient and no need for anticoagulation except for full dose of aspirin. The patient will be discharged home to follow up with his car bracer within 1 week. DISCHARGE INSTRUCTIONS/MEDICATIONS: Discharge medications will be: 1. Lipitor 10 mg daily. 2. Lopressor 25 mg twice a day. 3. Aspirin full dose once a day.
--- NOTE | 2016-11-23 19:21 | ED MED RECONCILIATION SUMMARY ---
Patient: PRABHJOT CHARLES Medication Reconciliation Report [facility] VisitID: [id number] [address] [place] [address] 51y, M Registration Date/Time: 11/22/2016 Weight: 99.7 kg Height/Length: 77 in. BMI: 26.1 ALLERGIES: NKDA The patient's Home Medications are listed below: THE FOLLOWING MEDICATIONS NEED TO BE RECONCILED: ASA Oral Lopressor Oral (50 mg), daily Statins Support Oral 10mg, daily The source(s) of the original Home Medication information: patient The following Medications were given to the patient in the Emergency Department: Cardizem [IVP] IVP 20 mg, administered: 11/22/2016 8:26:00 AM Aspirin [PO] PO 325 mg, administered: 11/22/2016 8:27:00 AM Cardizem [IV Drip] Drip IV bolus 0, then 10 mg 10 mg/hr, administered: 11/22/2016 8:45:00 AM Zofran [IVP] IVP 4 mg, administered: 11/22/2016 8:46:00 AM The following Medications were prescribed to the patient: None.
--- NOTE | 2016-11-23 19:21 | ED DISCHARGE INSTRUCTIONS ---
Patient: PRABHJOT CHARLES General Instructions [facility] VisitID: [id number] [place] [address] 51y, M Registration Date/Time: 11/22/2016 New onset atrial fibrillation. The patient does not have one or more high risk factors and/or two or more moderate risk factors for thromboembolism. The patient is not prescribed warfarin or another FDA approved anticoagulant because new onset a-fib. Indeterminant troponin. ADDITIONAL INFORMATION Arrhythmia Electrical impulses cause the normal heart to beat 60 to 100 times a minute. These impulses come from a natural pacemaker deep inside the heart muscle. Each impulse causes the heart muscle to contract. This causes the blood to flow through the heart and out to the tissues and organs of your body. An arrhythmia is a change from the normal speed or pattern of these electrical impulses. This can cause the heart to beat too fast (tachycardia); or too slow (bradycardia); or in an unsteady pattern (irregular rhythm). Symptoms of arrhythmias Different people experience arrhythmias differently. Sometimes they may not have symptoms, but just notice a change in their pulse. Symptoms can include: Fluttering feeling in the chest Shortness of breath Chest pain or pressure Lightheadedness or dizziness Fainting or nearly fainting Palpitations Tiredness, fatigue, or weakness Causes of arrhythmias Arrhythmias are most often due to heart disease such as: Coronary artery disease (arteriosclerosis) Disease of the heart valves Enlarged heart High blood pressure Heart failure Other causes ofarrhythmia include: Certain medicines (such as asthma inhalers and decongestants) Some herbal supplements Cardiac stimulant drugs (such as cocaine, amphetamine, diet pills, certain decongestant cold medicines, caffeine, and nicotine) Excessive alcohol use Medical conditions such as thyroid disease, anemia, anxiety, and panic disorder Arrythmias can often be prevented. The cause and type of arrhythmia determines the best treatment. Sometimes your doctor may want to monitor your heart rate over a 24-hour period or longer. This can help identify the cause of your arrhythmia and find the best treatment. This can be done with a Holter monitor,a portable EKG recording device attached by wires to your chest. You can carry this with you as you perform your routine activities during the monitoring period. Home care Avoid cardiac stimulants (such as cocaine, amphetamine, diet pills, certain decongestant cold medicines, caffeine, and nicotine). If you smoke, stop smoking. Contact your doctor or a local stop-smoking program for help. Tell your doctor about any prescription, [id number] or herbal medicines you take. These may be affecting your heart rhythm. Follow-up care Follow up with your health care provider or as advised by our staff. If a Holter monitor has been recommended, contact the cardiologistyou have been referred toas soon as you canpick up the device. Other outpatient tests may also be arranged for you at that time. Call 911 This is the fastest and safest way to get to the emergency department. The paramedics can also start treatment on the way to the hospital, if needed. Don'twait until your symptoms are severe to call 911. Other reasons to call 911 besides chest pain include: Chest, shoulder, arm, neck, or back pain Shortness of breath Feeling lightheaded, faint, or dizzy Rapid heart beat Slower than usual heart rate compared to your normal Angina withweakness, dizziness, fainting, heavy sweating, nausea, or vomiting Extreme drowsiness, or confusion Weakness of an arm or leg or one side of the face Difficulty with speech or vision When to seek medical care Remember, things are not always like they are on TV. Sometimes it is not so obvious. You may only feel weak or just "not right." If it is not clear or if you have any doubt, call for advice. Seek help for chest pain, or it feels different from usual, even if your symptoms are mild. Do not drive yourself. Have someone else drive. If no one can drive you, call 911. If your doctor has given you medicines to take when you have symptoms, take them, but do not delay getting help while trying to find them. Do not delay. Fast diagnosis and treatment can prevent or limit the amount of heart damage during a heart attack or stroke. Do not go to your doctor's ofice or a clinic because they will not be able to provide all of the testing or treatment required for this condition. You have been given the following additional information: Arrhythmia, Unspecified (Electronically signed by Tommy Alaniz MD 11/23/2016 19:20)
--- NOTE | 2016-11-23 19:21 | ED MAR SUMMARY ---
..... Medication Administration Record [facility] [address] [place] [place] [address] Patient: PRABHJOT CHARLES Visit ID: [id number] 51y, M Weight: 99.7 kg Height/Length: 77 in BMI: 26.1 ALLERGIES: NKDA Given 08:26 11/22/2016 Juventino Odom R.N. Medication Administered: CARDIZEM [IVP], Dose: 20 mg IVP over 4 minute(s), Site: #1 right AC. Medication Ordered: Cardizem IV 20 mg (NOW). Given 08:27 11/22/2016 Juventino Odom R.N. Medication Administered: ASPIRIN [PO], Dose: 325 mg PO. Medication Ordered: Aspirin PO 325 mg (NOW). Start 08:45 11/22/2016 Juventino Odom R.N., Continued Upon Disposition 10:12 11/22/2016 Juventino Odom R.N. Medication Administered: CARDIZEM [IV DRIP], Dose: 10 mg Drip IV over 4 hour(s), Rate: 10 mg/hr, Dispensed: 125 mL bag, Site: #2 left AC. Medication Ordered: Cardizem Drip IV : initial bolus 20 mg already given. , then 10 mg/hr for 4h (NOW); Routine. Given 08:46 11/22/2016 Juventino Odom R.N. Medication Administered: ZOFRAN [IVP] (ONDANSETRON HCL), Dose: 4 mg IVP over 2 minute(s), Site: #1 right AC. Medication Ordered: Zofran IV 4 mg (NOW).
--- NOTE | 2016-11-23 19:21 | ED MAR SUMMARY ---
..... Medication Administration Record [facility] [address] [place] [address] Patient: PRABHJOT CHARLES Visit ID: [id number] 51y, M Weight: 99.7 kg Height/Length: 77 in BMI: 26.1 ALLERGIES: NKDA Given 08:26 11/22/2016 Juventino Odom R.N. Medication Administered: CARDIZEM [IVP], Dose: 20 mg IVP over 4 minute(s), Site: #1 right AC. Medication Ordered: Cardizem IV 20 mg (NOW). Given 08:27 11/22/2016 Juventino Odom R.N. Medication Administered: ASPIRIN [PO], Dose: 325 mg PO. Medication Ordered: Aspirin PO 325 mg (NOW). Start 08:45 11/22/2016 Juventino Odom R.N., Continued Upon Disposition 10:12 11/22/2016 Juventino Odom R.N. Medication Administered: CARDIZEM [IV DRIP], Dose: 10 mg Drip IV over 4 hour(s), Rate: 10 mg/hr, Dispensed: 125 mL bag, Site: #2 left AC. Medication Ordered: Cardizem Drip IV : initial bolus 20 mg already given. , then 10 mg/hr for 4h (NOW); Routine. Given 08:46 11/22/2016 Juventino Odom R.N. Medication Administered: ZOFRAN [IVP] (ONDANSETRON HCL), Dose: 4 mg IVP over 2 minute(s), Site: #1 right AC. Medication Ordered: Zofran IV 4 mg (NOW).
--- NOTE | 2016-11-23 19:21 | ED MED RECONCILIATION SUMMARY ---
Patient: PRABHJOT CHARLES Medication Reconciliation Report [facility] VisitID: [id number] [address] [place] [address] 51y, M Registration Date/Time: 11/22/2016 Weight: 99.7 kg Height/Length: 77 in. BMI: 26.1 ALLERGIES: NKDA The patient's Home Medications are listed below: THE FOLLOWING MEDICATIONS NEED TO BE RECONCILED: ASA Oral Lopressor Oral (50 mg), daily Statins Support Oral 10mg, daily The source(s) of the original Home Medication information: patient The following Medications were given to the patient in the Emergency Department: Cardizem [IVP] IVP 20 mg, administered: 11/22/2016 8:26:00 AM Aspirin [PO] PO 325 mg, administered: 11/22/2016 8:27:00 AM Cardizem [IV Drip] Drip IV bolus 0, then 10 mg 10 mg/hr, administered: 11/22/2016 8:45:00 AM Zofran [IVP] IVP 4 mg, administered: 11/22/2016 8:46:00 AM The following Medications were prescribed to the patient: None.
== END 2016-11-23 12:00 | disposition home or self-care (01) | DRG 310 ==
LOC: ED SRH 08:06 → TRANS SRH 09:35 → CC SRH 10:50
PROVIDERS: ADMIT Emergency Medicine
DX: I48.0 Paroxysmal atrial fibrillation (principal); R07.89 Other chest pain; R74.8 Abnormal levels of other serum enzymes; R73.03 Prediabetes; R03.0 Elevated blood-pressure reading, without diagnosis of hypertension